=== PATIENT | female | born 1945 | race Caucasian/White ===

== ENCOUNTER 2020-06-27 09:03 | Outpatient (CLI) | payer OTHER, MEDICARE, SELFPAY ==
--- NOTE | ~2020-06-27 | MMUS_ITS ---
EXAMINATION: MM diagnostic aric BI w peg, US breast RT limited HISTORY: Lower inner quadrant right breast mass/lipoma of the breast TECHNIQUE: Craniocaudal, mediolateral, and mediolateral oblique 3-D tomosynthesis images of the breas ts were performed and synthetic 2-D images were generated. CAD analysis was submitted and interpreted . High resolution limited right breast ultrasound was performed. COMPARISON: 01/18/2019, 419, 08/06/2017 BREAST PARENCHYMAL COMPOSITION: There are scattered areas of fibroglandular density. FINDINGS: MAMMOGRAPHIC FINDINGS: Scattered benign-appearing calcifications are present. There is no evidence of suspicious mass, calci fication, or architectural distortion to suggest malignancy. There has been no suspicious interval c hange. No mammographic correlate is identified for the reported right breast mass. ULTRASOUND: There is a 4.8 x 2.1 cm isoechoic mass of the chest wall just to the right of midline corresponding t o the palpable abnormality of concern with sonographic features consistent with a lipoma. No suspicio us cystic or solid mass is identified. IMPRESSION: 1. Chest wall lipoma corresponding to the palpable abnormality of concern. No mammographic or sonogra phic evidence of malignancy. 2. Recommend routine screening mammography in one year. BI-RADS Category 2: Benign finding(s). Reviewed, dictated and finalized at location A. IMPRESSION: 1. Chest wall lipoma corresponding to the palpable abnormality of concern. No m ammographic or sonographic evidence of malignancy. 2. Recommend routine screening mammography in one year. BI-RADS Category 2: Benign finding(s).
== END 2020-06-27 09:04 | disposition home or self-care (01) ==
PROVIDERS: PCP Internal Medicine; Visit Provider Nurse Practitioner Women's Health
DX: N63.12 Unspecified lump in the right breast, upper inner quadrant (principal)
CPT/HCPCS: 76642; 77062; 77066; G0279

== ENCOUNTER 2021-07-02 11:51 | Outpatient (CLI) | payer OTHER, MEDICARE, SELFPAY ==
--- NOTE | ~2021-07-02 | MM_ITS ---
EXAMINATION: MM screening aric BI w peg HISTORY: Screening mammogram, family history of breast cancer in her mother. TECHNIQUE: Craniocaudal and mediolateral oblique 3-D tomosynthesis images were obtained and synthetic 2-D images were generated. CAD analysis was submitted and interpreted. COMPARISON: 06/27/2020, 01/18/2019, 08/06/2017 BREAST PARENCHYMAL COMPOSITION: There are scattered areas of fibroglandular density. FINDINGS: Scattered benign-appearing calcifications are present. There is no suspicious mass, calcifi cation, or architectural distortion to suggest malignancy in either breast. There has been no suspici ous interval change. IMPRESSION: 1. No mammographic evidence of malignancy. 2. Recommend routine screening mammography in one year. BI-RADS Category 2: Benign finding(s). Reviewed, dictated and finalized at location A.
== END 2021-07-02 11:52 | disposition home or self-care (01) ==
LOC: CHSIMG 11:54
PROVIDERS: PCP Internal Medicine; Visit Provider Nurse Practitioner Women's Health
DX: Z12.31 Encounter for screening mammogram for malignant neoplasm of breast (principal)
CPT/HCPCS: 77063; 77067

== ENCOUNTER 2022-07-04 12:18 | Outpatient (CLI) | payer MEDICARE, SELFPAY ==
--- NOTE | ~2022-07-04 | MM_ITS ---
EXAMINATION: MM screening aric BI w peg HISTORY: Screening TECHNIQUE: Craniocaudal and mediolateral oblique 3-D tomosynthesis images were obtained and synthetic 2-D images were generated. CAD analysis was submitted and interpreted. COMPARISON: Comparison to multiple prior studies sequentially, with oldest reviewed study dated 05/2017. BREAST PARENCHYMAL COMPOSITION: Breast composed of scattered areas of fibroglandular density FINDINGS: There is developing asymmetries in the right breast. There is a mass in the upper outer meghan drant of the right breast posteriorly. There is a cluster of nonspecific calcifications subareolar lo cation of the right breast. The left breast is stable without evidence for malignancy. IMPRESSION: 1. Developing right breast mass, asymmetries and clustered calcifications. 2. Additional mammographic views and possible breast ultrasound are recommended. BI-RADS Category 0: Incomplete: Needs additional imaging evaluation. Reviewed, dictated and finalized at location A. IMPRESSION: 1. Developing right breast mass, asymmetries and clustered calcifications. 2. Additional mammographic views and possible breast ultrasound are recommended . BI-RADS Category 0: Incomplete: Needs additional imaging evaluation.
--- NOTE | ~2022-07-04 | XR_ITS ---
XR chest 2V DATE: 07/04/2022 13:10 INDICATION: Left sided pneumonia follow-up TECHNIQUE: PA and lateral views COMPARISON: 02/02/2018 CT chest FINDINGS: Normal heart size. No hilar or mediastinal enlargement. Aortic arch calcification. Minimal discoid atelectasis or scarring in each lower lung. Otherwise no pulmonary infiltrate or cons olidation, pleural effusion or pulmonary vascular congestion or pneumothorax is detected. Surgical clips overlie the upper abdomen consistent with cholecystectomy. Osteopenia. Osteoarthritic change at both glenohumeral joints. IMPRESSION: Mild discoid atelectasis or scarring in each lower lung; otherwise no active cardiopulmon lynne disease Reviewed, dictated and finalized at location L. IMPRESSION: Mild discoid atelectasis or scarring in each lower lung; otherwise no active cardiopulmonary disease
[2022-07-04 12:42] LABS: Basophils Absolute Auto 0.12 K/mm3 (0.00-0.10); Basophils Percent Auto 0.9 % (0.0-1.0); Eosinophils Absolute Auto 0.27 K/mm3 (0.02-0.50); Eosinophils Percent Auto 2.1 % (1.0-6.0); Immature Granulocyte Absolute 0.12 K/mm3 (0.00-0.00); Immature Granulocyte Percent A 0.9 % (0.0-0.0); Lymphocytes Absolute Auto 2.29 K/mm3 (1.10-4.50); Lymphocytes Percent Auto 17.6 % (18.0-42.0); Mean Corpuscular HGB Conc 32.5 g/dL (32.0-36.0); Mean Corpuscular Hemoglobin 31.6 pg (27.0-31.0); Mean Corpuscular Volume 97.3 fL (78.0-102.0); Mean Platelet Volume 9.8 fl (9.2-11.8); Monocytes Absolute Auto 0.78 K/mm3 (0.10-0.90); Neutrophils Absolute Auto 9.4 K/mm3 (1.7-7.2); Neutrophils Percent Auto 72.5 % (50.0-70.0); Platelet Count Result 370 K/mm3 (150-420); Red Blood Count 4.11 M/mm3 (4.20-5.40); Red Cell Distribution Width 12.7 % (11.6-14.4)
[2022-07-04 13:26] LABS: Alanine Aminotransferase 29 U/L (14-59); Albumin Level 3.8 g/dL (3.4-5.0); Alkaline Phosphatase 104 U/L (46-116); Anion Gap 9 mmol/L (8-16); Aspartate Amino Transferase 17 U/L (15-37); Bilirubin,Total 0.5 mg/dL (0.00-1.00); Blood Urea Nitrogen 28 mg/dL (7-18); Calcium 10.1 mg/dL (8.5-10.1); Carbon Dioxide 30 mmol/L (21-32); Chloride 103 mmol/L (98-108); Estimated Glomerular Filt Rate 33; Glucose 137 mg/dL (70-99); Osmolality Calculated 301 mOsm/kg (285-295); Potassium 5.3 mmol/L (3.5-5.1); Sodium 142 mmol/L (136-145); Total Protein 7.5 g/dL (6.4-8.2)
[2022-07-04 13:44] LABS: CRP < 0.5 mg/dL (0.0-0.9)
== END 2022-07-04 12:19 | disposition home or self-care (01) ==
PROVIDERS: PCP Internal Medicine; Visit Provider Nurse Practitioner Women's Health
DX: Z12.31 Encounter for screening mammogram for malignant neoplasm of breast (principal); J18.9 Pneumonia, unspecified organism; R92.8 Other abnormal and inconclusive findings on diagnostic imaging of breast; R91.8 Other nonspecific abnormal finding of lung field
CPT/HCPCS: 36415; 71046; 77063; 77067; 80053; 85025; 86140

== ENCOUNTER 2022-07-15 09:00 | Outpatient (CLI) | payer MEDICARE, SELFPAY ==
--- NOTE | ~2022-07-15 | MMUS_ITS ---
EXAMINATION: MM diagnostic aric RT w peg, US breast RT complete HISTORY: Developing right breast mass, asymmetries and clustered calcifications reported on 07/04/2022 screening mammogram TECHNIQUE: Additional 3-D tomosynthesis images of the right breast were performed and synthetic 2-D i mages were generated. CAD analysis was submitted and interpreted. High resolution complete right ke st ultrasound examination including all 4 quadrants and subareolar area was performed. COMPARISON: 07/04/2022 bilateral screening mammogram 07/02/2021 bilateral screening mammogram 06/27/2020 diagnostic bilateral mammogram and limited right breast ultrasound 02/03/2019 left breast ultrasound diagnostic left mammogram, left breast ultrasound 08/06/2017 bilateral screening mammogram FINDINGS: MAMMOGRAPHIC FINDINGS: There is interval asymmetric density and associated grouped microcalcifications in the mid to lower o uter right breast. There is asymmetric density, architectural distortion and grouped microcalcifications in the upper mi d right breast. Deeper in the upper mid right breast is an approximately 7.8 x 9 mm irregular mass density. ULTRASOUND: At 12:00 near the nipple there is prominent ill-defined shadowing. Discrete mass lesion is not identi fied. Discrete sonographic mass lesion of the right breast is not evident. IMPRESSION: 1. Abnormal grouped microcalcifications in the mid to lower outer right breast in upper mid right kiera ast and asymmetric density in the posterior upper mid right breast. 2. Stereotactic biopsy of (1) mid to lower outer right breast calcifications, (2) upper mid right kiera ast microcalcifications and (3) mid upper posterior right breast mass is recommended BI-RADS category 4, suspicious findings. Dr. Jo telephoned the report and stereotactic breast biopsy recommendation on July 15, 2022 1100 h ours to [place]. Reviewed, dictated and finalized at location A. IMPRESSION: 1. Abnormal grouped microcalcifications in the mid to lower outer right breast in upper mid right breast and asymmetric density in the posterior upper mid rig ht breast. 2. Stereotactic biopsy of (1) mid to lower outer right breast calcifications, ( 2) upper mid right breast microcalcifications and (3) mid upper posterior right breast mass is recommended BI-RADS category [address], [address] Jo telephoned the report and stereotactic breast biopsy recommendation on July 15, 2022 1100 hours to [place].
== END 2022-07-15 09:01 | disposition home or self-care (01) ==
LOC: CHSIMG 09:02
PROVIDERS: PCP Internal Medicine; Visit Provider Nurse Practitioner Women's Health
DX: R92.8 Other abnormal and inconclusive findings on diagnostic imaging of breast (principal)
CPT/HCPCS: 76641; 77061; 77065; G0279